=== PATIENT | female | born 1955 | race Caucasian/White ===

== ENCOUNTER → 2019-01-10 | Outpatient (CLI) | payer OTHER ==
[~2019-01-10] MED LIST: ALEVE 220MG220 MG PO; ASPIRIN 81M81 MG/TA2 PO; ASPIRIN E.C. 8181 MG PO; BLACK COHOSH540 MG PO; CINNAMON500 MG PO; CRANBERRY1000 MG PO; DEPO PROVER150 MG/ML IM; LISINOPRIL/HCTZ1 TA2 PO; METFORMIN1000 MG PO; MSM1000 MG PO; NEURONTIN300 MG/CAP PO; NORCO 325 MG-51 TAB PO; NORCO 325 MG-7.1 TAB PO; ROXICODONE 55 MG/TAB PO; SENOKOT8.6 MG PO; SINGULAIR 110 MG/TAB PO; ULTRAM ER100 MG PO; VENTOLIN0.09 MG IH; VICODIN 5/5001 UDTAB PO; XARELTO STARTER20 MG PO; XARELTO10 MG PO; ZESTORETIC 25 M1 TAB PO
== END ==
LOC: MC.RAD 11:38
DX: Z12.31 Encounter for screening mammogram for malignant neoplasm of breast (principal)

== ENCOUNTER 2021-12-05 08:25 | Day surgery (SDC) | payer MEDICARE ==
[~2021-12-05] VITALS: Ht 165.2 cm; Wt 126.9 kg
[2021-12-05] VITALS (12 sets, daily range): BP systolic 93–115; BP diastolic 51–72; PULSE 67–77; TEMP 98.3
[~2021-12-05 08:25] MED LIST changes: +GLUCOPHAGE850 MG/TAB PO; -METFORMIN1000 MG PO; -NEURONTIN300 MG/CAP PO; +NEURONTIN400 MG/CAP PO
[2021-12-05 10:11] LABS: HEMATOCRIT 38.3 % (37.0-47.0); HEMOGLOBIN 12.4 g/dl (12.5-16.0); MEAN CELL VOLUME 87 fl (80.0-100.0); MEAN CORPUSCULAR HEMOGLOBIN 28 pg (27-31); MEAN CORPUSCULAR HGB CONC 32 g/dl (33.0-37.0); PLATELET COUNT 376 K/mm3 (130-400); RED BLOOD COUNT 4.38 M/mm3 (4.10-5.30); REDCELL DISTRIBUTION WIDTH-CV 16.1 % (11.5-14.5)
--- NOTE | 2021-12-05 10:17 | NUR ---
SEE MERGE FOR ALL MEDICATION ADMINISTRATION TIMES/DOSAGES AND INTRA/POST PROCEDURE SEDATION ASSESSMENTS.
[2021-12-05] MEDS ORDERED: ALEVE 220MG220 MG PO (10:20)
[2021-12-05 10:21] LABS: INR 1.1 (0.8-3.0); PROTHROMBIN TIME 12.7 SECONDS (9.7-12.8)
[2021-12-05] MEDS ORDERED: ALLEGRA 180MG180 MG PO (10:21)
[2021-12-05] MEDS ORDERED: ASPIRIN 32325 MG/TAB PO (10:22)
[2021-12-05 10:24] LABS: PARTIAL THROMBOPLASTIN TIME 30.6 SECONDS (26.0-37.0)
[2021-12-05] MEDS ORDERED: NATURE'S BLEND160 MG PO (10:24)
[2021-12-05] MEDS ORDERED: CALCIUM 600MG+D1 TAB PO (10:25)
[2021-12-05 10:27] LABS: CREATININE, serum 0.98 mg/dL (0.57-1.11); POTASSIUM 4.1 mmol/L (3.5-4.5)
[2021-12-05] MEDS ORDERED: NATURE'S BLEND500 M1 PO (10:37)
--- NOTE | 2021-12-05 11:30 | NUR ---
Pt is back from cath lab radiology technician. Pt is drowsy, but easily arousable. Pt back on monitor, NSR 60's, tr band to rt wrist, cms intact distal. lunch ordered. pillows propped under pt's left shoulder and arm to achieve comfortable position for patient
--- NOTE | 2021-12-05 12:15 | NUR ---
pt placed on 2l/ncd for o2 sats 86% while sleeping. sats up to low 90's.
--- NOTE | 2021-12-05 13:00 | NUR ---
pt doing well, eating lunch at this time. no acute complaints at this time. states rt arm feels good the way it is positioned.
--- NOTE | 2021-12-05 14:58 | NUR ---
PT is ready for departure. Pt is awake and alert, she has been satting 95% on room air. TR band was deflated without any problem. site dressed with bandaid, folded 2x2 and coban. cms remains intact distal. I have reviewed dc/rx and fu instructions with pt, and she verbalized understanding. Pt was up and amb with walker around nurses station with steady gait. IV dc'd with cath intact, dressing applied. At this time, pt is escorted to exit via wheelchair.
== END 2021-12-05 17:01 | disposition home or self-care (01) ==
LOC: COL.CAR 08:25
PROVIDERS: Internal Medicine Cardiovascular Disease
DX: R07.89 Other chest pain (principal); R06.02 Shortness of breath; R94.39 Abnormal result of other cardiovascular function study; R06.09 Other forms of dyspnea; J44.9 Chronic obstructive pulmonary disease, unspecified; E66.01 Morbid (severe) obesity due to excess calories; E11.9 Type 2 diabetes mellitus without complications; E78.5 Hyperlipidemia, unspecified; I10 Essential (primary) hypertension; I26.99 Other pulmonary embolism without acute cor pulmonale; J30.9 Allergic rhinitis, unspecified; G89.29 Other chronic pain; M54.9 Dorsalgia, unspecified; K21.9 Gastro-esophageal reflux disease without esophagitis; Z87.891 Personal history of nicotine dependence; E78.2 Mixed hyperlipidemia; Z79.82 Long term (current) use of aspirin; Z79.899 Other long term (current) drug therapy; Z79.84 Long term (current) use of oral hypoglycemic drugs; Z83.3 Family history of diabetes mellitus
CPT/HCPCS: J1644; J2250; J3010; Q9967